=== PATIENT | male | born 1995 | race Caucasian/White ===

== ENCOUNTER 2016-11-13 11:02 | Emergency (ER) | payer OTHER ==
[~2016-11-13] VITALS: Ht 170.2 cm; Wt 113.4 kg
[2016-11-13 11:38] VITALS: BP 125/72
--- NOTE | 2016-11-13 11:56 | NUR ---
PATIENT IS A 21 YO MALE BIB SELF FOR RIGHT ANKLE PAIN AWAKE AND ALERT HAS CRUTCH FOR ASSIST.
[2016-11-13 12:56] VITALS: BP 125/72
--- NOTE | 2016-11-13 12:57 | NUR ---
Patient discharged with v/s stable. Written and verbal after care instructions given and explained. Patient alert, oriented and verbalized understanding of instructions. Ambulatory with steady gait. All questions addressed prior to discharge. ID band removed. Patient advised to follow up with PMD. Rx of MOTRIN AND CLARITIN given. Patient educated on indication of medication including possible reaction and side effects. Opportunity to ask questions provided and answered.
== END 2016-11-13 12:57 | disposition home or self-care (01) ==
LOC: MED 11:02
DX: S93.401A Sprain of unspecified ligament of right ankle, initial encounter (principal); J02.9 Acute pharyngitis, unspecified; X58.XXXA Exposure to other specified factors, initial encounter; Y93.39 Activity, other involving climbing, rappelling and jumping off; Y92.008 Other place in unspecified non-institutional (private) residence as the place of occurrence of the external cause; Y99.8 Other external cause status

== ENCOUNTER 2021-10-29 14:38 | Emergency (ER) | payer OTHER ==
[~2021-10-29] VITALS: Ht 170.2 cm; Wt 99.8 kg
[2021-10-29 14:41] VITALS: BP 155/86
--- NOTE | 2021-10-29 14:53 | NUR ---
26Y MALE BIB SELF DUE TO JAW PAIN AND R SIDED JAW SWELLING. PT DENIES ANY SOB, TROUBLE SWALLOWING. DENIES ANY TRAUMA PMH: HTN NKA
[2021-10-29] MEDS ORDERED: diphenhydrAMINE 50 MG/ML VIAL IVP ONE (15:05)
--- NOTE | 2021-10-29 15:13 | NUR ---
BLOOD CULTURES WALKED TO LAB. HANDED TO CINDY
--- NOTE | 2021-10-29 15:21 | NUR ---
CT CONSENT SIGNED AND PLACED INTO PATIENT CHART
[2021-10-29 15:27] LABS: BASOPHILS # (AUTO) 0.1 K/uL (0.00-0.22); BASOPHILS % (AUTO) 0.7 % (0.0-2.0); EOSINOPHILS # (AUTO) 0.2 K/uL (0-0.4); EOSINOPHILS % (AUTO) 1.4 % (0.0-4.0); HEMATOCRIT 44.8 % (36-52); HEMOGLOBIN 14.9 g/dL (12.0-18.0); LYMPHOCYTES # (AUTO) 2.8 K/uL (2.0-11.5); LYMPHOCYTES % (AUTO) 20.1 % (20.5-51.1); MEAN CORPUSCULAR HEMOGLOBIN 29 pg (27-31); MEAN CORPUSCULAR HGB CONC 33 g/dL (33-37); MEAN CORPUSCULAR VOLUME 86.8 fL (80-94); MONOCYTES # (AUTO) 0.8 K/uL (0.8-1.0); MONOCYTES % (AUTO) 5.6 % (1.7-9.3); NEUTROPHILS # (AUTO) 10.2 K/uL (1.8-7.7); NEUTROPHILS % (AUTO) 72.2 % (42.2-75.2); PLATELET COUNT (AUTO) 497 K/uL (140-450); RED BLOOD CELL COUNT(AUTO) 5.16 MIL/uL (4.20-6.10); RED CELL DISTRIBUTION WIDTH 13.8 % (11.6-13.7); WHITE BLOOD COUNT (AUTO) 14.2 K/uL (4.8-10.8)
--- NOTE | 2021-10-29 15:40 | NUR ---
PT TAKEN TO CT VIA W/C
[2021-10-29 15:49] LABS: ANION GAP 11.1 (8-16); CARBON DIOXIDE 28.4 mmol/L (21-32); POTASSIUM 3.5 mmol/L (3.5-5.1)
--- NOTE | 2021-10-29 15:57 | NUR ---
PT RETURNED TO BED [address] VIA W/C
[2021-10-29] MEDS ORDERED: AMOX-1230 PO (16:47)
[2021-10-29] MEDS ORDERED: AMPICILLIN/SULBACTAM 3 GM in NACL 0.9% 100 ML IV ONE (16:50)
[2021-10-29] MEDS ORDERED: AMPICILLIN/SULBACTAM 3 GM VIAL ONE (16:57)
[2021-10-29] MEDS ORDERED: HYDROcodone/APAP 5/325 MG 1 TAB TAB PO ONE (17:05)
--- NOTE | 2021-10-29 17:58 | NUR ---
PT GIVEN COOKIES AND JUICE
[2021-10-29 18:14] VITALS: BP 140/95
--- NOTE | 2021-10-29 18:15 | NUR ---
Patient discharged with v/s stable. Written and verbal ABOUT DENTAL ABSCESS AND CELLULITIS after care instructions given and explained. Patient alert, oriented and verbalized understanding of instructions. Ambulatory with steady gait. All questions addressed prior to discharge. ID band removed. Patient advised to follow up with PMD. Rx of AMOXICILLIN given. Opportunity to ask questions provided and answered.
--- NOTE | 2021-10-29 18:16 | NUR ---
IV removed, catheter intact and site benign. Applied folded 4x4 gauze and tape to stop bleeding.
--- NOTE | 2021-10-29 18:20 | NUR ---
The patient's care was reviewed and supervised by Bianka Auguste RN, RN.
== END 2021-10-29 18:14 | disposition home or self-care (01) ==
LOC: MED 14:38
DX: K04.7 Periapical abscess without sinus (principal); K12.2 Cellulitis and abscess of mouth; I10 Essential (primary) hypertension; Z79.2 Long term (current) use of antibiotics
CPT/HCPCS: 36415; 70491; 80048; 85025; 87040; 96365; 96375; 99285; J0295; J1200

== ENCOUNTER 2022-01-18 12:48 | Emergency (ER) | payer MEDICAID, OTHER ==
[~2022-01-18] VITALS: Ht 170.2 cm; Wt 96.6 kg
[~2022-01-18 12:48] MED LIST: AMOX-1230 PO
[2022-01-18 12:55] VITALS: BP 142/95
--- NOTE | 2022-01-18 13:11 | NUR ---
FLU AND KAUSHAL SWABS COLLECTED AND WALKED TO LAB
--- NOTE | 2022-01-18 13:26 | NUR ---
26/M PRESENTS TO ED WITH C/O BODY ACHES, CHILLS AND FATIGUE X2 DAYS, REPORTS TAKING IBUPROFEN WITH NO RELIEF. DENIES CP, SOB OR RECENT SICK CONTACTS.
[2022-01-18 14:46] VITALS: BP 140/85
== END 2022-01-18 14:45 | disposition home or self-care (01) ==
LOC: MED 12:48
DX: B34.9 Viral infection, unspecified (principal); Z20.822 Contact with and (suspected) exposure to COVID-19; I10 Essential (primary) hypertension; Z79.2 Long term (current) use of antibiotics
CPT/HCPCS: 99283

== ENCOUNTER 2023-10-13 14:11 | Emergency (ER) | payer MEDICAID ==
[~2023-10-13] VITALS: Ht 170.2 cm; Wt 118.0 kg
[2023-10-13 14:17] VITALS: BP 132/80; PULSE 104; RESP 20; TEMP 97.9; O2SAT 98
[2023-10-13] MEDS ORDERED: IBUP-2213 PO (15:05)
[2023-10-13] MEDS ORDERED: FLONAS NS (15:05)
[2023-10-13] MEDS ORDERED: PROM118S5 PO (15:05)
[2023-10-13] MEDS ORDERED: AMOX1TAB8 PO (15:05)
== END 2023-10-13 15:27 | disposition home or self-care (01) ==
LOC: MED 14:11
DX: H66.91 Otitis media, unspecified, right ear (principal); J06.9 Acute upper respiratory infection, unspecified; I10 Essential (primary) hypertension; Z79.899 Other long term (current) drug therapy
CPT/HCPCS: 99283